=== PATIENT | male | born 1975 | race Caucasian/White ===

== ENCOUNTER 2019-10-30 00:49 | Day surgery (SDC) | payer BC, SELFPAY ==
[2019-10-16 14:35] VITALS: BMI 31.8
[2019-10-30] VITALS (9 sets, daily range): BP systolic 133–153; BP diastolic 92–104; PULSE 76–103; RESP 10–16; TEMP 36.3–36.4; O2SAT 93–98
--- NOTE | ~2019-10-30 | XR_ITS ---
EXAMINATION: XR surgery orthopedic DATE: 10/30/2019 11:00 INDICATION: Right foot arthroereisis TECHNIQUE: 2 fluoroscopic spot images of the right hindfoot were obtained during procedure performed by Dr. Lyn. Radiologist was not present for the imaging or procedure. The amount of fluoroscopy time used during this procedure was 0.7 minutes. COMPARISON: None. FINDINGS: Metal implant for arthroereisis projects over expected position at the sinus Tarsi. Bone alignment is normal. No fracture. Joint spaces are normal. Moderate-sized plantar calcaneal spur. IMPRESSION: 1. Expected appearance post right hindfoot arthroereisis. See procedure note for further detail. Reviewed, dictated and finalized at location A. TRICAL AND INSTRUMENT ENGINEER IMPRESSION: 1. Expected appearance post right hindfoot arthroereisis. See procedure note fo r further detail.
--- NOTE | 2019-10-30 07:35 | WPDHPUPDATE1 ---
History and Physical Update Update Date/Time: 10/30/19 07:35 History and Physical has been reviewed, including an updated exam of the patient. There are NO changes in the patient's condition. Risks, benefits, and alternatives have been discussed and questions answered. Patient agrees to proceed with procedure.
[2019-10-30] MEDS: LACTATED RINGERS 1,000 ML 30 ML IV CONT ×2 (07:37→11:34)
--- NOTE | 2019-10-30 08:18 | P.PNAN_ITS ---
Anes - Initial Pre Proc Eval Procedure: Operation Date: 10/30/19 09:00 Proposed Procedures p Talotarsal Stabilization Right Foot With Arthroereisis - Carlos Lyn JR, MD Date/Time: 10/30/19 08:18 Surgeon: Carlos Lyn JR, MD Pre Op Diagnosis: Talotarala Instability Right Foot Patient Data Age: 44 Gender: M Height: 1.91 m Weight: 112.6 kg Last Vital Signs Temp 36.4 C L 10/30/19 07:27 Pulse 96 10/30/19 07:27 Resp 16 10/30/19 07:27 BP 153/92 H 10/30/19 07:27 Pulse Ox 98 10/30/19 07:27 Allergies Allergy/AdvReac Type Severity Reaction Status Date / Time No Known Allergies Allergy Mild Unverified 10/30/19 07:26 Home Medications Medication Instructions Recorded Confirmed Type Vitamin C 1 tablet PO DAILY 10/16/19 10/30/19 History multivitamin 1 tablet PO DAILY 10/16/19 10/30/19 History Patient hx anesthesia problems: none Family hx anesthesia problems: none [facility] Family History Family History (Updated 03/23/16 @ 23:21 by DOCTOR UNKNOWN) Grandparent Family history of epilepsy Hypertension Cerebrovascular accident Malignant neoplasm of prostate Father Patient's father is in good health Sibling Patient's brother is in good health Mother Family history of cardiac disorder Family history of Alzheimer's disease Social History Social History (Updated 10/30/19 @ 08:19 by Uche Brooks DO) Social History: 6-12 beers 4-5 days/week Smoking status: Former smoker Second hand tobacco smoke exposure: No Smoking end date: 08/26/14 Alcohol intake: current Anes - Eval Final PreProcedure Day of Procedure 10/30/19 08:18 Patient weight: obese Heart: regular rate and rhythm Lungs: clear to auscultation and normal air movement Airway: Mallampati scale class II Neurological: alert and oriented Last oral intake: >/= 8 hours ASA classification: III Emergent: no Anesthetic plan: proceed Anesthesia type and monitoring: general LMA and standard monitoring Informed Consent: The patient's anesthetic plan and its attendant risks and benefits were discussed with the patient/family/POA. Questions were solicited and answers provided to the satisfaction of the patient/family/POA.
--- NOTE | 2019-10-30 09:47 | SUR.PREOP ---
Discussed delay with patient. Voices understanding.
[2019-10-30] MEDS: ceFAZolin 2 GM/D5W 50 ML 2 GM/50 ML BAG IVPB (10:11)
[2019-10-30] MEDS: LIDOCAINE HCL 2% LOCAL INJ 20 ML VIAL 5 ML INFILTRATE (10:37)
[2019-10-30] MEDS: KETOROLAC 30 MG/ML VIAL (*BKC) IV PUSH (10:43)
--- NOTE | 2019-10-30 11:03 | PM.OP ---
Procedure Note - Brief Procedure Note - Brief Date of procedure: 10/30/19 Pre-op diagnosis: Talotarsal Instability Right Foot Post-op diagnosis: same Procedure performed: Talotarsal stabilization right foot with arthroereisis implant Anesthesia: GLMA Surgeon: Carlos Lyn JR, DPM Estimated blood loss (mL): 1 Complications: No immediate complications Condition: stable Disposition: same day
--- NOTE | 2019-10-30 15:49 | OP_ITS ---
DATE OF PROCEDURE: 10/30/2019 PREOPERATIVE DIAGNOSIS: Talotarsal instability of the right foot. POSTOPERATIVE DIAGNOSIS: Talotarsal instability of the right foot. PROCEDURE: Talotarsal stabilization of the right foot with arthroereisis implant. PATHOLOGY: None. ANESTHESIA: General with local. HEMOSTASIS: Pneumatic ankle tourniquet at 250 mmHg. ESTIMATED BLOOD LOSS: Minimal. MATERIALS USED: 1 HyProCure size 7 implant, 4-0 Vicryl, 4-0 Monocryl. INJECTABLES: 20 cc of a 1:1 mixture of 2% lidocaine plain and 0.5% Marcaine plain injected preoperatively. COMPLICATIONS: None. PROCEDURE IN DETAIL: Under mild sedation, the patient was brought into the operating room, placed on the operating table in the supine position. A pneumatic ankle tourniquet was placed about the patient's right ankle. Following general anesthesia, local anesthesia was obtained about the proximal lateral right leg approximately 1 cm posterior and 3 cm inferior to the neck of the fibula, 20 cc of a 1:1 mixture of 2% lidocaine plain and 0.5% Marcaine plain were deposited in order to block the common peroneal nerve. Furthermore just above the level of the lateral ankle, another 5 cc of 0.5% Marcaine plain and 2% lidocaine plain were infiltrated just proximal to the incision sites. The foot was then scrubbed, prepped, and draped in the usual aseptic manner. An Esmarch bandage was then used to examine the patient's right foot and the pneumatic ankle tourniquet was then inflated. Surgery began in the following manner. Attention was directed to the lateral aspect of the sinus tarsi of the right foot where a 2 cm incision was made along the lateral aspect. Incision was continued deep down through the subcutaneous tissues using sharp and blunt dissection. All bleeders were cauterized as necessary. At this point, a mosquito curved hemostat was used to find the sinus tarsi. At this point, the talocalcaneal ligament was transected utilizing blunt tenotomy scissors. Next, a guidewire for the HyProCure implant system was placed from lateral to medial in the sinus canal. Next, a size 6 trial implant was placed within the sinus tarsi canal and the midtarsal joint was placed through range of motion. There was significant improvement as far as the midtarsal joint locking, however, there was still some noted anterior advancement of the cyma line on the lateral view noted. The decision was made to continue with a size 7 trial sizer for the HyProCure implant. The HyProCure size 7 trial implant was placed all the way medial until the tailing end of the implant was along the lateral neck of the talus. AP and lateral views were taken. There was excellent covering of the talar head along with increase in talocalcaneal angle and a rectus cyma line. The decision was made to continue with a size 7 HyProCure implant. It was placed in a cannulated fashion from lateral to medial carefully tightening the implant until the trailing end of the implant was properly positioned within the lateral aspect of the neck of the talus. AP and lateral views were used to make sure that the implant was appropriately positioned within the sinus tarsi canal. Once again, the midtarsal joint locked properly and there was enough eversion to allow normal weightbearing, approximately 2-4 degrees of subtalar joint motion maintained. Significant improvement as far as the medial arch height was noted after insertion of the subtalar implant. The wound site was then flushed with copious amounts of sterile saline. The temporary wire was removed and care was taken to make sure that the implant did not dislodge. Final fluoroscopic images were taken in the AP and lateral views showing excellent positioning of the implant. Next, the lateral capsular structures were reappr
== END 2019-10-30 13:05 | disposition home or self-care (01) ==
PROVIDERS: PCP Internal Medicine; Visit Provider Podiatrist Foot & Ankle Surgery
PROC: (CPT 28750; principal; 2019-10-30 09:00)
DX: M25.374 Other instability, right foot (principal); Z87.891 Personal history of nicotine dependence; E66.9 Obesity, unspecified; Z68.31 Body mass index [BMI] 31.0-31.9, adult
CPT/HCPCS: 28899; J0690; J1100; J1885; J2250; J2405; J2704; J3010; J7120

== ENCOUNTER → 2020-11-14 00:46 | Outpatient (CLI) | payer BC, SELFPAY ==
[2020-11-14 20:24] LABS: SARS-CoV-2 RNA PCR Negative
== END ==
PROVIDERS: PCP Internal Medicine; Visit Provider Internal Medicine Gastroenterology
DX: Z01.812 Encounter for preprocedural laboratory examination (principal); Z20.822 Contact with and (suspected) exposure to COVID-19
CPT/HCPCS: C9803; U0003; U0005

== ENCOUNTER 2020-11-17 01:35 | Day surgery (SDC) | payer BC, SELFPAY ==
[2020-11-04 09:50] VITALS: BMI 27.5
[2020-11-17 11:47] VITALS: BP 134/87; PULSE 86; RESP 16; TEMP 36.6; O2SAT 100
[2020-11-17] MEDS: LACTATED RINGERS 1,000 ML 150 ML IV CONT (11:58)
--- NOTE | 2020-11-17 12:14 | WPDANESEPPF ---
Anes - Initial Pre Proc Eval Procedure: Operation Date: 11/17/20 13:00 Proposed Procedures p Esophagogastroduodenoscopy - Scottie White MD Date/Time: 11/17/20 12:14 Surgeon: Scottie White MD Pre Op Diagnosis: dysphagia Patient Data Age: 45 Gender: M Height: 6 ft 3 in Weight: 100 kg Last Vital Signs Temp 97.8 F 11/17/20 11:47 Pulse 86 11/17/20 11:47 Resp 16 11/17/20 11:47 BP 134/87 11/17/20 11:47 Pulse Ox 100 11/17/20 11:47 Allergies Allergy/AdvReac Type Severity Reaction Status Date / Time No Known Allergies Allergy Mild Verified 11/17/20 11:44 Home Medications Medication Instructions Recorded Confirmed Type Vitamin C 1 tablet PO DAILY 10/16/19 11/17/20 History multivitamin 1 tablet PO DAILY 10/16/19 11/17/20 History rosuvastatin 5 mg tablet See Rx Instructions .ROUTE 08/02/20 11/17/20 Rx .COMPLEX #90 tablet cyanocobalamin (vitamin B-12) 1,000 mcg PO DAILY 11/04/20 11/17/20 History [Vitamin B-12] omeprazole 40 mg capsule,delayed See Rx Instructions .ROUTE 11/04/20 11/17/20 Rx release .COMPLEX #30 cap sildenafil [Viagra] 100 mg PO DAILY PRN 11/17/20 11/17/20 History Patient hx anesthesia problems: none Family hx anesthesia problems: none PMFSH Past Medical History Medical History (Updated 11/17/20 @ 12:09 by Ritchie Nur MD) Hyperlipidemia LDL goal <130 Family History Family History Grandparent Family history of epilepsy Hypertension Cerebrovascular accident Malignant neoplasm of prostate Father Patient's father is in good health Sibling Patient's brother is in good health Mother Family history of cardiac disorder Family history of Alzheimer's disease Social History Social History Social History: 6-12 beers 4-5 days/week Smoking packs per day: 1 Smoking cigarettes per day: 20.0 Years smoked: 22 Smoking pack-years: 22.00 Smoking status: Former smoker Tobacco type: cigarettes Second hand tobacco smoke exposure: No Smoking end date: 11/14/15 Alcohol intake: current Drinks per week: 30 Substance use type: does not use Living arrangements: with family Gender identity (if verbalized by the patient): Male Spiritual care concerns: No Anes - Eval Final PreProcedure Day of Procedure 11/17/20 12:14 Patient weight: normal Heart: regular rate and rhythm Lungs: clear to auscultation Airway: Mallampati scale class II Neurological: alert and oriented Last oral intake: >/= 8 hours ASA classification: III Emergent: no Anesthetic plan: proceed Anesthesia type and monitoring: general GIVS and standard monitoring Informed Consent: The patient's anesthetic plan and its attendant risks and benefits were discussed with the patient/family/POA. Questions were solicited and answers provided to the satisfaction of the patient/family/POA.
--- NOTE | 2020-11-17 13:05 | PM.HPGS ---
History of Present Illness History of Present Illness Consent: Risks, benefits, and alternatives have been discussed and questions answered. Patient agrees to proceed with procedure. Chief complaint: dysphagia Narrative: Bandar Bañuelos is a 45 year old male with dysphagia and gerd improved with omeprazole but never had egd Review of Systems Constitutional: Constitutional: Denies headache(s) and Denies weakness Eyes: Eyes: Denies blurry vision ENT: Reports Normal hearing present, Denies headache(s) and Denies neck pain Cardiovascular: Cardiovascular: Denies chest pain and Denies dyspnea Respiratory: Respiratory: Denies dyspnea Gastrointestinal: Gastrointestinal: Reports no additional gastrointestinal complaints Genitourinary: Genitourinary: Denies dysuria Musculoskeletal: Musculoskeletal: Denies neck pain Integumentary/Breasts: Skin/Breast: Denies dry skin Neurologic: Reports Normal hearing present, Denies headache(s) and Denies weakness Psychiatric: Psychiatric: Denies anxiety Endocrine: Endocrine: Denies change in body appearance Hematologic/Lymphatic: Hematologic/Lymphatic: Denies easy bleeding Allergic/Immunologic: Allergic/Immunologic: Denies urticaria PMFSH Past Medical History Medical History (Updated 11/17/20 @ 13:06 by Scottie White MD) GERD (gastroesophageal reflux disease) Hyperlipidemia LDL goal <130 Family History Family History Grandparent Family history of epilepsy Hypertension Cerebrovascular accident Malignant neoplasm of prostate Father Patient's father is in good health Sibling Patient's brother is in good health Mother Family history of cardiac disorder Family history of Alzheimer's disease Social History Social History Social History: 6-12 beers 4-5 days/week Smoking packs per day: 1 Smoking cigarettes per day: 20.0 Years smoked: 22 Smoking pack-years: 22.00 Smoking status: Former smoker Tobacco type: cigarettes Second hand tobacco smoke exposure: No Smoking end date: 11/14/15 Alcohol intake: current Drinks per week: 30 Substance use type: does not use Living arrangements: with family Gender identity (if verbalized by the patient): Male Spiritual care concerns: No Meds Home Medications and Allergies Home Medications Medication Instructions Recorded Confirmed Type Vitamin C 1 tablet PO DAILY 10/16/19 11/17/20 History multivitamin 1 tablet PO DAILY 10/16/19 11/17/20 History rosuvastatin 5 mg tablet See Rx Instructions .ROUTE 08/02/20 11/17/20 Rx .COMPLEX #90 tablet cyanocobalamin (vitamin B-12) 1,000 mcg PO DAILY 11/04/20 11/17/20 History [Vitamin B-12] omeprazole 40 mg capsule,delayed See Rx Instructions .ROUTE 11/04/20 11/17/20 Rx release .COMPLEX #30 cap sildenafil [Viagra] 100 mg PO DAILY PRN 11/17/20 11/17/20 History Allergies Allergy/AdvReac Type Severity Reaction Status Date / Time No Known Allergies Allergy Mild Verified 11/17/20 11:44 Vital Signs Vital Signs - 24 hr 11/17/20 11:47 Temperature 97.8 F Pulse Rate 86 Respiratory Rate 16 Blood Pressure 134/87 Pulse Oximetry 100 Exam Const: General: comfortable and no acute distress HENMT: General nose exam: Normal nares present Eyes: General: appearance normal, both eyes and all related structures Neck: Neck: no JVD Resp: Auscultation: clear to auscultation bilaterally Cardio: Rate: regular rate Rhythm: regular rhythm GI: Inspection: non-distended GI Palp: Yes Soft to palpation Skin: General skin exam: normal color Neuro: General: gait normal Speech: normal speech Extrem: General: normal to inspection Psych: Mental Status: mental status grossly normal Assessment and Plan Assessment and plan (1) Dysphagia: Code(s): R13.10 - Dysphagia, unspecified Status: Acute Asse
[2020-11-17] MEDS: BENZOCAINE (*SP) 60 ML SPRAY CAN (HURRICAINE) 1 SPRAY MUCOUS MEM (13:09)
[2020-11-17 13:23] VITALS: BP 128/86; PULSE 83; RESP 23; O2SAT 98
[2020-11-17 13:33] VITALS: BP 118/77; PULSE 69; RESP 16; O2SAT 98
[2020-11-17 13:43] VITALS: BP 127/78; PULSE 67; RESP 14; O2SAT 100
== END 2020-11-17 14:10 | disposition home or self-care (01) ==
PROVIDERS: PCP Internal Medicine; Visit Provider Internal Medicine Gastroenterology
PROC: 0DJ08ZZ Inspection of Upper Intestinal Tract, Via Natural or Artificial Opening Endoscopic (ICD-10-PCS; CPT 43235; principal; 2020-11-17 13:00)
DX: K21.00 Gastro-esophageal reflux disease with esophagitis, without bleeding (principal); R13.10 Dysphagia, unspecified; K44.9 Diaphragmatic hernia without obstruction or gangrene; E78.5 Hyperlipidemia, unspecified; Z87.891 Personal history of nicotine dependence
CPT/HCPCS: 43239; 88305; J2704; J7120

== ENCOUNTER → 2022-08-07 16:53 | Outpatient (CLI) | payer BC, SELFPAY ==
--- NOTE | ~2022-08-07 | XR_ITS ---
Cervical Spine: AP, lateral, oblique, open-mouth views Clinical History: Cervicalgia COMPARISON: 05/19/2009 Findings: The normal lordotic curve is maintained. The vertebral bodies and posterior elements appea r intact. The intervertebral disc spaces are well maintained. Pre-vertebral soft tissues are unremar kable. Impression: No significant abnormality is seen. Reviewed, dictated and finalized at location [] OR MAINFRAME DEVELOPER Impression: No significant abnormality is seen.
== END ==
PROVIDERS: PCP Family Medicine; Visit Provider Family Medicine
DX: M54.2 Cervicalgia (principal)
CPT/HCPCS: 72050

== ENCOUNTER 2023-12-17 09:30 | Outpatient (CLI) | payer BC, SELFPAY ==
[2023-12-17 19:07] LABS: Alanine Aminotransferase 39 U/L (6-50); Albumin Level 4.3 g/dL (3.5-5.1); Alkaline Phosphatase 58 U/L (38-126); Anion Gap 4 mmol/L (4-12); Aspartate Amino Transferase 48 U/L (17-59); Bilirubin,Total 0.6 mg/dL (0.2-1.3); Blood Urea Nitrogen 13 mg/dL (9-20); Calcium 9.2 mg/dL (8.4-10.2); Carbon Dioxide 29 mmol/L (22-30); Chloride 102 mmol/L (98-107); Cholesterol 211 mg/dL (0-200); Estimated Glomerular Filt Rate > 60; Glucose 101 mg/dL (65-110); HDL Direct 30 mg/dL; Potassium 4.6 mmol/L (3.4-5.0); Sodium 135 mmol/L (137-145); Triglycerides 155 mg/dL (<150)
[2023-12-17 19:18] LABS: LDL Cholesterol Direct 164 mg/dL
== END 2023-12-17 09:31 | disposition home or self-care (01) ==
LOC: ANHGOSHLAB 09:31
PROVIDERS: PCP Family Medicine; Visit Provider Family Medicine
DX: E78.5 Hyperlipidemia, unspecified (principal); Z13.220 Encounter for screening for lipoid disorders; I10 Essential (primary) hypertension; Z13.228 Encounter for screening for other metabolic disorders
CPT/HCPCS: 36415; 80053; 80061

== ENCOUNTER 2024-06-18 09:53 | Outpatient (CLI) | payer BC, SELFPAY ==
[2024-06-25 17:38] LABS: Testosterone Free 63.9 pg/mL (35.0-155.0); Testosterone Total 389 ng/dL (250-1100)
== END 2024-06-18 09:54 | disposition home or self-care (01) ==
LOC: ANHGOSHLAB 09:54
PROVIDERS: PCP Family Medicine; Visit Provider Family Medicine
DX: R53.83 Other fatigue (principal)
CPT/HCPCS: 36415; 84402; 84403

== ENCOUNTER 2025-03-23 10:09 | Outpatient (CLI) | payer BC, SELFPAY ==
--- OUTSIDE RECORDS SUMMARY | 2025-03-23 10:19 | XMS_ITS | Clinical Summary ---
Author Organization [facility] Address [address] [place] [id number] Care Team Providers Care Lighting Fixtures Decorator Name Role Phone Unavailable Primary Care Provider Unavailabl e Encounters Date Type Department Care Team Description 01/26/2025 External Device Data [facility] ABSTRACTION Provider, Abstract 01/13/2025 External Device Data [facility] ABSTRACTION Provider, Abstract 01/12/2025 External Device Data [facility] ABSTRACTION Provider, Abstract from Last 3 Months Social History Tobacco Use Types Packs/Day Years Used Date Smoking Tobacco: Never Assessed Sex and Gender Information Value Date Recorded Sex Assigned at Not on file Legal Sex Male 11:08 AM CDT Gender Identity Not on file Sexual Orientation Not on file Plan of Treatment Health Maintenance Due Date Last Done Comments DTAP/TDAP/TD VACCINES (1 - Tdap) 1993 HEPATITIS B VACCINES (1 of 3 - 19+ 3-dose series) 07/27 COLORECTAL SCREENING 2019 Colorectal Cancer Screening 2019 FIT-DNA Q 3 years 2019 FIT/FOBT Q 1 year 2019 Flex Sig/CT Colonography Q 5 years 2019 ZOSTER VACCINE (1 of 2) 2024 INFLUENZA VACCINE (#1) 2025 Insurance
[2025-03-23 12:57] LABS: Hematocrit 46.6 % (42.0-52.0); Hemoglobin 14.7 g/dL (14.0-18.0); Immature Granulocyte Percent A 0.2 % (0-0.5); Lymphocytes Absolute Auto 1.23 K/mm3 (0.9-3.2); Mean Corpuscular HGB Conc 31.5 g/dl (32-36); Mean Corpuscular Hemoglobin 29.3 pg (26-34); Mean Corpuscular Volume 93.0 fl (80-100); Nucleated Red Blood Cells Absolute Auto 0.000 K/mm3 (0.0-0.012); Nucleated Red Blood Cells Perc 0.0 % (0.0-0.2); Platelet Count Result 321 k/mm3 (150-375); Red Blood Count 5.01 M/mm3 (4.6-6.20); White Blood Count 5.1 K/mm3 (4.5-10.0)
[2025-03-23 13:06] LABS: Alanine Aminotransferase 34 U/L (6-50); Albumin Level 4.5 g/dL (3.5-5.1); Alkaline Phosphatase 58 U/L (38-126); Anion Gap 10 mmol/L (4-12); Aspartate Amino Transferase 49 U/L (17-59); Bilirubin,Total 0.7 mg/dL (0.2-1.3); Blood Urea Nitrogen 11 mg/dL (9-20); Calcium 9.3 mg/dL (8.4-10.2); Carbon Dioxide 26 mmol/L (22-30); Chloride 103 mmol/L (98-107); Cholesterol 195 mg/dL (0-200); Estimated Glomerular Filt Rate > 60; Glucose 103 mg/dL (65-110); HDL Direct 29 mg/dL; Potassium 4.9 mmol/L (3.4-5.0); Sodium 139 mmol/L (137-145); Total Protein 7.9 g/dL (6.3-8.2); Triglycerides 121 mg/dL (<150)
[2025-03-23 17:12] LABS: Prostate Specific Antigen 1.0 ng/mL (< OR = 4.0)
[2025-03-23 17:31] LABS: Vitamin B12 305.0 pg/mL (239-931)
== END 2025-03-23 10:10 | disposition home or self-care (01) ==
LOC: ANHGOSHLAB 10:09
PROVIDERS: PCP Family Medicine; Visit Provider Family Medicine
DX: Z00.00 Encounter for general adult medical examination without abnormal findings (principal); E78.5 Hyperlipidemia, unspecified; I10 Essential (primary) hypertension; K21.9 Gastro-esophageal reflux disease without esophagitis; Z12.5 Encounter for screening for malignant neoplasm of prostate
CPT/HCPCS: 36415; 80053; 80061; 82172; 82306; 82607; 84153; 85025; G0103